=== PATIENT | female | born 1950 | race Caucasian/White ===

== ENCOUNTER 2017-10-14 09:03 | Day surgery (SDC) | payer OTHER ==
[2017-10-14] MEDS ORDERED: NA CHLORIDE 0.9% 500 ML ONE (09:44)
[2017-10-14] MEDS ORDERED: CYCLOPENTOLATE 1% OPTH 2 ML ONE (09:49)
[2017-10-14] MEDS ORDERED: LIDOCAINE 2% MPF 5 ML VIAL ONE (09:54)
[2017-10-14] MEDS ORDERED: TETRACAINE HCL 0.5% 2ML OPTH ONE (09:54)
[2017-10-14] MEDS: CYCLOPENTOLATE 1% OPTH 2 ML ONE ×2 (09:55→10:05)
[2017-10-14] MEDS: TETRACAINE HCL 0.5% 2ML OPTH ONE ×2 (09:55→10:00)
[2017-10-14] MEDS: PHENYLEPHRINE 10% OPTH 5ML ONE ×3 (09:55→10:05)
[2017-10-14] MEDS ORDERED: BUPIVACAINE 0.25% PF 30 ML VIAL ONE (09:55)
[2017-10-14] MEDS ORDERED: TRYPAN BLUE 0.5 ML SYR OPTH ONE (10:04)
[2017-10-14] MEDS: BALANCED SALT IRRIG PLAIN 500 ML BTL IRR ONE ×2 (10:17→11:00)
[2017-10-14] MEDS: DUOVISC 1 KIT OPTH ONE ×2 (10:18→11:00)
[2017-10-14] MEDS: EPINEPHRINE/PF 1 MG/ML AMP ONE ×2 (10:18→11:00)
[2017-10-14] MEDS: MOXIFLOXACIN HCL 10 DROPS/ML **OR USE OPTH ONE ×2 (10:18→11:00)
[2017-10-14] MEDS ORDERED: LIDOCAINE 1% MPF 5 ML VIAL ONE (10:46)
[2017-10-14] MEDS ORDERED: PROPOFOL 200 MG/20 ML VIAL IV ONE (10:46)
--- NOTE | 2017-10-14 11:32 | P.BOP ---
Preoperative diagnosis: Nuclear sclerotic cataract OD Postoperative diagnosis: Same Primary procedure: Phacoemulsification with IOL OD Estimated blood loss: None Anesthesia: Local (Subtenon's infusion with anesthesia for cataract surgery) Complications: None Implants: ZCB00 +19.0 Transferred to: Other (Day surgery) Condition: Good
--- NOTE | 2017-10-14 22:26 | OP ---
Surgeon: Kristi Tidwell MD Anesthesiologist: Andrew Ch CRNA and Cory Em M.D. Preoperative Diagnosis: Nuclear sclerotic cataract, right eye. Operation Performed: Phacoemulsification with intraocular lens implant, right eye. Anesthesia: Per cataract surgery. Complications: None. Description Of Procedure: In day surgery, the patient was prepped with Betadine and draped. A conjunctival incision was made in the inferior nasal quadrant with Sivakumar scissors. A sub-Tenon block consisting of a 1:1 mixture of 2% Xylocaine and 0.25% bupivacaine was placed through the conjunctival incision with a blunt cannula. A Honan balloon was placed over the eye and the patient was transferred to the operating room. In the operating room the patient was prepped and draped in the usual sterile fashion for ophthalmic surgery. A lid speculum was placed in the right eye. Two paracentesis sites were made superiorly and inferiorly in the limbal cornea. Viscoat was placed in the anterior chamber and a crescent blade was used to make a corneal groove and tunnel, and a keratome was used to enter the anterior chamber. Provisc was placed in the anterior chamber and a 360 degree capsulotomy was performed with a cystitome. The lens was hydrodissected with BSS and rotated freely. The lens was removed with a stop and chop technique. A 12.3 phaco CDE was used to remove the lens. Residual cortex was removed with the irrigation and aspiration. Provisc was placed in the capsular bag. A ZCB00 +19.0 diopter lens was placed in the capsular bag without complications. Irrigation and aspiration were used to remove residual viscoelastic. The paracentesis sites were hydrated with BSS. The wound and paracentesis sites were inspected and found to be watertight. Vigamox 0.07 cc was placed intracamerally at the end of the procedure. The eye was irrigated with balanced salt solution. The eye was patched with a soft cotton patch and Merlos metal shield. The patient was returned to day surgery in good condition. Discharge Instructions: Ms. Kunz discharged to home in good condition and is to follow up with Dr. Tidwell in the morning. JOHN/GEOFF Voice ID: [id number] Report ID: [id number]
== END 2017-10-14 12:15 | disposition home or self-care (01) ==
LOC: OR 09:03
PROVIDERS: ATTEND Ophthalmology Retina Specialist
PROC: 08RJ3JZ Replacement of Right Lens with Synthetic Substitute, Percutaneous Approach (ICD-10-PCS; principal; 2017-10-14 10:00)
DX: H25.11 Age-related nuclear cataract, right eye (principal); H25.011 Cortical age-related cataract, right eye; E11.319 Type 2 diabetes mellitus with unspecified diabetic retinopathy without macular edema; I10 Essential (primary) hypertension; K21.9 Gastro-esophageal reflux disease without esophagitis; Z95.0 Presence of cardiac pacemaker; Z88.0 Allergy status to penicillin; Z85.828 Personal history of other malignant neoplasm of skin; Z83.511 Family history of glaucoma; Z80.9 Family history of malignant neoplasm, unspecified
CPT/HCPCS: 82962; J0171